=== PATIENT | female | born 1950 | race Caucasian/White ===

== ENCOUNTER → 2018-12-24 | Outpatient (CLI) | payer MEDICARE, OTHER ==
[2018-12-23 10:00] VITALS: BP 113/64
[~2018-12-24] MED LIST: ACETAMINOPHEN500 M5 PO; CALCIUM CITRATE1 TA1 PO; CIPRO 100MG TA100 MG; ECOTRIN325 M1 PO; FERROUS SULFAT325 M4 PO; FUROSEMIDE20 MG PO; GLIMEPIRIDE4 MG PO; JANUVIA 100MG100 MG PO; LEVEMIR FLEX100 U/ML SQ; METFORMIN HYD1000 MG PO; NAPROXEN500 MG PO; OLMESARTAN MEDO20 MG PO; OXYCODONE5 M1 PO; PRILOSEC 20MG20 MG PO; SIMVASTATIN40 M1 PO; TRAMADOL 50 MG TAB PO
[2018-12-24 10:14] LABS: ALBUMIN 3.1 g/dL (3.4-4.8); POTASSIUM 4.5 mmol/L (3.5-5.1)
[2018-12-24 10:15] LABS: CALCIUM 9.3 mg/dL (8.3-10.5)
[2018-12-24 10:17] LABS: TOTAL PROTEIN 7.4 g/dL (6.2-8.1)
[2018-12-24 10:18] LABS: TOTAL BILIRUBIN 0.2 mg/dL (0.2-1.2)
[2018-12-24 11:55] LABS: HEMATOCRIT 22.5 % (37.0-47.0); HEMOGLOBIN 6.5 g/dL (12.5-16.0); MEAN CELL VOLUME 79 fl (78-100); MEAN CORPUSCULAR HEMOGLOBIN 23 pg (27-31); RED BLOOD COUNT 2.84 M/mm3 (4.10-5.30); WHITE BLOOD COUNT 6.6 K/mm3 (4.8-10.8)
[2018-12-24 11:56] LABS: MEAN CORPUSCULAR HGB CONC 29 g/dL (33-37); MEAN PLATELET VOLUME 8.3 fl (7.4-10.4); PLATELET COUNT 649 K/mm3 (130-400); RED CELL DISTRIBUTION WIDTH 17.8 % (11.5-14.5)
[2018-12-24 11:58] LABS: ERYTHROCYTE SEDIMENTATION RATE > 135 mm/hr (0-30)
[2018-12-24 11:59] LABS: HYPOCHROMIA 1+; LYMPHOCYTE 24 % (20-51); MICROCYTOSIS 1+; MONOCYTE 7 % (3-10); NEUTROPHILS 69 % (42-75); POLYCHROMASIA 1+
[2018-12-24 12:00] LABS: OVALOCYTES 1+
== END ==
LOC: LAB 09:41
PROVIDERS: Nurse Practitioner Primary Care
DX: M00.9 Pyogenic arthritis, unspecified (principal); A49.01 Methicillin susceptible Staphylococcus aureus infection, unspecified site; A49.8 Other bacterial infections of unspecified site; E11.9 Type 2 diabetes mellitus without complications

== ENCOUNTER → 2018-12-31 | Outpatient (CLI) | payer MEDICARE, OTHER ==
[2018-12-30 17:23] VITALS: BP 120/63
[2018-12-31 17:52] LABS: EOS # 0.2 (0.04-0.40); EOS % 3.5 % (1.0-5.0); HEMATOCRIT 33.3 % (37.0-47.0); HEMOGLOBIN 10.1 g/dL (12.5-16.0); LYMPH# 1.6 (1.50-4.00); MEAN CELL VOLUME 80 fl (78-100); MEAN CORPUSCULAR HGB CONC 30 g/dL (33-37); MEAN PLATELET VOLUME 8.6 fl (7.4-10.4); MONO # 0.5 (0.20-0.80); NEU # 3.5 (1.40-6.50); PLATELET COUNT 399 K/mm3 (130-400); RED BLOOD COUNT 4.16 M/mm3 (4.10-5.30); WHITE BLOOD COUNT 5.9 K/mm3 (4.8-10.8)
[2018-12-31 17:54] LABS: MEAN CORPUSCULAR HEMOGLOBIN 24 pg (27-31); RED CELL DISTRIBUTION WIDTH 18.2 % (11.5-14.5)
[2018-12-31 18:02] LABS: ALBUMIN 3.5 g/dL (3.4-4.8); POTASSIUM 4.1 mmol/L (3.5-5.1)
[2018-12-31 18:03] LABS: CALCIUM 9.4 mg/dL (8.3-10.5)
[2018-12-31 18:04] LABS: TOTAL PROTEIN 7.9 g/dL (6.2-8.1)
[2018-12-31 18:06] LABS: TOTAL BILIRUBIN 0.2 mg/dL (0.2-1.2)
[2018-12-31 18:45] LABS: ERYTHROCYTE SEDIMENTATION RATE 79 mm/hr (0-30)
== END ==
LOC: LAB 17:39
PROVIDERS: Orthopaedic Surgery
DX: T81.49XA Infection following a procedure, other surgical site, initial encounter (principal); B95.8 Unspecified staphylococcus as the cause of diseases classified elsewhere

== ENCOUNTER → 2019-01-07 | Outpatient (CLI) | payer MEDICARE, OTHER ==
[2019-01-06 17:04] VITALS: BP 117/64
[2019-01-07 17:15] LABS: EOS # 0.2 (0.04-0.40); EOS % 2.4 % (1.0-5.0); HEMATOCRIT 33.5 % (37.0-47.0); HEMOGLOBIN 10.1 g/dL (12.5-16.0); LYMPH# 1.7 (1.50-4.00); MEAN CELL VOLUME 79 fl (78-100); MEAN CORPUSCULAR HGB CONC 30 g/dL (33-37); MEAN PLATELET VOLUME 8.9 fl (7.4-10.4); MONO # 0.5 (0.20-0.80); PLATELET COUNT 328 K/mm3 (130-400); RED BLOOD COUNT 4.24 M/mm3 (4.10-5.30); RED CELL DISTRIBUTION WIDTH 17.9 % (11.5-14.5); WHITE BLOOD COUNT 6.4 K/mm3 (4.8-10.8)
[2019-01-07 17:19] LABS: ALBUMIN 3.8 g/dL (3.4-4.8); POTASSIUM 4.4 mmol/L (3.5-5.1)
[2019-01-07 17:20] LABS: CALCIUM 9.8 mg/dL (8.3-10.5)
[2019-01-07 17:21] LABS: MEAN CORPUSCULAR HEMOGLOBIN 24 pg (27-31)
[2019-01-07 17:22] LABS: TOTAL PROTEIN 8.2 g/dL (6.2-8.1)
[2019-01-07 17:23] LABS: TOTAL BILIRUBIN 0.2 mg/dL (0.2-1.2)
[2019-01-07 18:26] LABS: ERYTHROCYTE SEDIMENTATION RATE 72 mm/hr (0-30)
== END ==
LOC: LAB 16:24
PROVIDERS: Internal Medicine Infectious Disease
DX: T81.49XA Infection following a procedure, other surgical site, initial encounter (principal); B95.8 Unspecified staphylococcus as the cause of diseases classified elsewhere

== ENCOUNTER → 2019-01-10 | Outpatient (CLI) | payer MEDICARE, OTHER ==
[2019-01-07 16:33] VITALS: BP 123/72
== END ==
LOC: LAB 15:33
DX: M79.10 Myalgia, unspecified site (principal)

== ENCOUNTER → 2019-01-14 | Outpatient (CLI) | payer MEDICARE, OTHER ==
[2019-01-13 15:43] VITALS: BP 131/71
[2019-01-14 16:33] LABS: EOS # 0.2 (0.04-0.40); EOS % 3.3 % (1.0-5.0); HEMATOCRIT 34.4 % (37.0-47.0); HEMOGLOBIN 10.5 g/dL (12.5-16.0); LYMPH# 1.7 (1.50-4.00); MEAN CELL VOLUME 78 fl (78-100); MEAN CORPUSCULAR HGB CONC 31 g/dL (33-37); MEAN PLATELET VOLUME 9.7 fl (7.4-10.4); MONO # 0.5 (0.20-0.80); NEU # 3.9 (1.40-6.50); PLATELET COUNT 299 K/mm3 (130-400); RED BLOOD COUNT 4.41 M/mm3 (4.10-5.30); RED CELL DISTRIBUTION WIDTH 17.7 % (11.5-14.5); WHITE BLOOD COUNT 6.5 K/mm3 (4.8-10.8)
[2019-01-14 16:36] LABS: ALBUMIN 3.8 g/dL (3.4-4.8); POTASSIUM 4.4 mmol/L (3.5-5.1)
[2019-01-14 16:39] LABS: TOTAL PROTEIN 7.7 g/dL (6.2-8.1)
[2019-01-14 16:41] LABS: TOTAL BILIRUBIN 0.2 mg/dL (0.2-1.2)
[2019-01-14 16:57] LABS: MEAN CORPUSCULAR HEMOGLOBIN 24 pg (27-31)
[2019-01-14 17:36] LABS: ERYTHROCYTE SEDIMENTATION RATE 48 mm/hr (0-30)
== END ==
LOC: LAB 15:22
PROVIDERS: Nurse Practitioner Primary Care
DX: T81.49XA Infection following a procedure, other surgical site, initial encounter (principal); B95.8 Unspecified staphylococcus as the cause of diseases classified elsewhere

== ENCOUNTER → 2019-01-21 | Outpatient (CLI) | payer MEDICARE, OTHER ==
[2019-01-20 15:59] VITALS: BP 112/64
[2019-01-21 15:58] LABS: EOS # 0.2 (0.04-0.40); EOS % 2.9 % (1.0-5.0); HEMATOCRIT 32.8 % (37.0-47.0); HEMOGLOBIN 9.9 g/dL (12.5-16.0); LYMPH# 1.6 (1.50-4.00); MEAN CELL VOLUME 78 fl (78-100); MEAN CORPUSCULAR HGB CONC 30 g/dL (33-37); MEAN PLATELET VOLUME 9.6 fl (7.4-10.4); MONO # 0.4 (0.20-0.80); NEU # 4.7 (1.40-6.50); PLATELET COUNT 285 K/mm3 (130-400); RED CELL DISTRIBUTION WIDTH 17.6 % (11.5-14.5); WHITE BLOOD COUNT 6.9 K/mm3 (4.8-10.8)
[2019-01-21 16:01] LABS: MEAN CORPUSCULAR HEMOGLOBIN 24 pg (27-31)
[2019-01-21 16:03] LABS: ALBUMIN 3.7 g/dL (3.4-4.8); POTASSIUM 4.4 mmol/L (3.5-5.1)
[2019-01-21 16:04] LABS: CALCIUM 9.5 mg/dL (8.3-10.5)
[2019-01-21 16:05] LABS: TOTAL PROTEIN 7.3 g/dL (6.2-8.1)
[2019-01-21 16:07] LABS: TOTAL BILIRUBIN 0.2 mg/dL (0.2-1.2)
[2019-01-21 17:14] LABS: ERYTHROCYTE SEDIMENTATION RATE 52 mm/hr (0-30)
== END ==
LOC: LAB 15:17
PROVIDERS: Nurse Practitioner Primary Care
DX: T81.49XA Infection following a procedure, other surgical site, initial encounter (principal); B95.8 Unspecified staphylococcus as the cause of diseases classified elsewhere

== ENCOUNTER → 2019-01-28 | Outpatient (CLI) | payer MEDICARE, OTHER ==
[2019-01-27 15:44] VITALS: BP 101/68
[2019-01-28 16:20] LABS: EOS # 0.4 (0.04-0.40); EOS % 6.7 % (1.0-5.0); HEMATOCRIT 32.4 % (37.0-47.0); HEMOGLOBIN 9.8 g/dL (12.5-16.0); LYMPH# 1.5 (1.50-4.00); MEAN CELL VOLUME 78 fl (78-100); MEAN CORPUSCULAR HGB CONC 30 g/dL (33-37); MEAN PLATELET VOLUME 9.3 fl (7.4-10.4); MONO # 0.4 (0.20-0.80); NEU # 3.4 (1.40-6.50); PLATELET COUNT 272 K/mm3 (130-400); RED BLOOD COUNT 4.18 M/mm3 (4.10-5.30); RED CELL DISTRIBUTION WIDTH 17.6 % (11.5-14.5); WHITE BLOOD COUNT 5.8 K/mm3 (4.8-10.8)
[2019-01-28 16:23] LABS: MEAN CORPUSCULAR HEMOGLOBIN 23 pg (27-31)
[2019-01-28 16:26] LABS: ALBUMIN 3.8 g/dL (3.4-4.8)
[2019-01-28 16:27] LABS: POTASSIUM 4.1 mmol/L (3.5-5.1)
[2019-01-28 16:28] LABS: CALCIUM 9.6 mg/dL (8.3-10.5)
[2019-01-28 16:29] LABS: TOTAL PROTEIN 7.2 g/dL (6.2-8.1)
[2019-01-28 16:31] LABS: TOTAL BILIRUBIN 0.2 mg/dL (0.2-1.2)
[2019-01-28 17:18] LABS: ERYTHROCYTE SEDIMENTATION RATE 55 mm/hr (0-30)
== END ==
LOC: LAB 15:43
PROVIDERS: Nurse Practitioner Primary Care
DX: T81.49XA Infection following a procedure, other surgical site, initial encounter (principal); B95.8 Unspecified staphylococcus as the cause of diseases classified elsewhere

== ENCOUNTER → 2019-02-04 | Outpatient (CLI) | payer MEDICARE, OTHER ==
[2019-02-03 15:42] VITALS: BP 114/70
[2019-02-04 16:17] LABS: ALBUMIN 3.8 g/dL (3.4-4.8); EOS # 0.2 (0.04-0.40); EOS % 3.6 % (1.0-5.0); HEMATOCRIT 33.4 % (37.0-47.0); HEMOGLOBIN 10.1 g/dL (12.5-16.0); LYMPH# 1.6 (1.50-4.00); MEAN CELL VOLUME 78 fl (78-100); MEAN CORPUSCULAR HGB CONC 30 g/dL (33-37); MONO # 0.4 (0.20-0.80); NEU # 3.9 (1.40-6.50); PLATELET COUNT 274 K/mm3 (130-400); POTASSIUM 4.2 mmol/L (3.5-5.1); RED BLOOD COUNT 4.31 M/mm3 (4.10-5.30); RED CELL DISTRIBUTION WIDTH 17.8 % (11.5-14.5); WHITE BLOOD COUNT 6.2 K/mm3 (4.8-10.8)
[2019-02-04 16:18] LABS: CALCIUM 9.7 mg/dL (8.3-10.5)
[2019-02-04 16:19] LABS: TOTAL PROTEIN 7.5 g/dL (6.2-8.1)
[2019-02-04 16:21] LABS: TOTAL BILIRUBIN 0.2 mg/dL (0.2-1.2)
[2019-02-04 17:19] LABS: MEAN CORPUSCULAR HEMOGLOBIN 23 pg (27-31)
[2019-02-04 17:20] LABS: ERYTHROCYTE SEDIMENTATION RATE 51 mm/hr (0-30)
== END ==
LOC: LAB 15:36
PROVIDERS: Nurse Practitioner Primary Care
DX: T81.49XA Infection following a procedure, other surgical site, initial encounter (principal); B95.8 Unspecified staphylococcus as the cause of diseases classified elsewhere

== ENCOUNTER 2019-02-07 15:32 | Outpatient (RCR) | payer MEDICARE, OTHER ==
[2018-12-18 10:30] VITALS: BP 116/63
[2018-12-19 10:43] VITALS: BP 114/60
[2018-12-20 11:10] VITALS: BP 120/64
[2018-12-21 10:38] VITALS: BP 112/57
[2018-12-22 10:00] VITALS: BP 130/68
[2018-12-23 10:00] VITALS: BP 113/64
[2018-12-24 09:54] VITALS: BP 113/64
[2018-12-25 09:35] VITALS: BP 110/79
[2018-12-26 10:44] VITALS: BP 137/75
[2018-12-27 17:00] VITALS: BP 135/62
[2018-12-28 17:29] VITALS: BP 136/78
[2018-12-29 17:15] VITALS: BP 141/71
[2018-12-30 17:23] VITALS: BP 120/63
[2018-12-31 17:28] VITALS: BP 137/70
[2019-01-01 17:27] VITALS: BP 123/72
[2019-01-02 17:55] VITALS: BP 167/78
[2019-01-03 17:13] VITALS: BP 139/73
[2019-01-04 16:49] VITALS: BP 137/72
[2019-01-05 16:55] VITALS: BP 125/73
[2019-01-06 17:04] VITALS: BP 117/64
[2019-01-07 16:33] VITALS: BP 123/72
[2019-01-10 15:54] VITALS: BP 125/71
[2019-01-11 15:55] VITALS: BP 109/73
[2019-01-12 15:51] VITALS: BP 116/93
[2019-01-13 15:43] VITALS: BP 131/71
[2019-01-14 16:03] VITALS: BP 121/72
[2019-01-15 15:50] VITALS: BP 116/64
[2019-01-16 15:45] VITALS: BP 110/62
[2019-01-17 15:26] VITALS: BP 119/60
[2019-01-18 15:21] VITALS: BP 130/73
[2019-01-19 15:00] VITALS: BP 111/60
[2019-01-20 15:59] VITALS: BP 112/64
[2019-01-21 15:48] VITALS: BP 123/64
[2019-01-22 16:04] VITALS: BP 114/64
[2019-01-23 15:35] VITALS: BP 116/84
[2019-01-24 15:30] VITALS: BP 130/68
[2019-01-25 15:15] VITALS: BP 129/70
[2019-01-26 15:39] VITALS: BP 123/68
[2019-01-27 15:44] VITALS: BP 101/68
[2019-01-28 16:27] VITALS: BP 118/68
[2019-01-29 15:52] VITALS: BP 113/62
[2019-01-30 15:29] VITALS: BP 124/66
[2019-01-31 16:14] VITALS: BP 109/71
[2019-02-01 16:30] VITALS: BP 126/71
[2019-02-02 15:47] VITALS: BP 106/68
[2019-02-03 15:42] VITALS: BP 114/70
[2019-02-04 16:09] VITALS: BP 114/69
[2019-02-05 15:43] VITALS: BP 128/69
[2019-02-06 16:02] VITALS: BP 112/73
[~2019-02-07] VITALS: Ht 160 cm; Wt 94.5 kg
[2019-02-07 15:38] VITALS: BP 128/74
== END 2019-02-07 16:00 | disposition home or self-care (01) ==
LOC: AMSURD 15:32
DX: T84.52XA Infection and inflammatory reaction due to internal left hip prosthesis, initial encounter (principal); B95.8 Unspecified staphylococcus as the cause of diseases classified elsewhere; Z79.899 Other long term (current) drug therapy
CPT/HCPCS: J0696; J0878

== ENCOUNTER → 2019-04-01 | Outpatient (CLI) | payer MEDICARE, OTHER ==
[2019-04-01 12:00] LABS: EOS # 0.1 (0.04-0.40); EOS % 2.2 % (1.0-5.0); HEMATOCRIT 37.9 % (37.0-47.0); HEMOGLOBIN 11.4 g/dL (12.5-16.0); MEAN CELL VOLUME 78 fl (78-100); MEAN CORPUSCULAR HGB CONC 30 g/dL (33-37); MEAN PLATELET VOLUME 9.1 fl (7.4-10.4); MONO # 0.4 (0.20-0.80); NEU # 3.3 (1.40-6.50); PLATELET COUNT 261 K/mm3 (130-400); RED BLOOD COUNT 4.89 M/mm3 (4.10-5.30); RED CELL DISTRIBUTION WIDTH 17.8 % (11.5-14.5); WHITE BLOOD COUNT 5.9 K/mm3 (4.8-10.8)
[2019-04-01 12:06] LABS: MEAN CORPUSCULAR HEMOGLOBIN 23 pg (27-31); POTASSIUM 4.1 mmol/L (3.5-5.1)
[2019-04-01 12:07] LABS: CALCIUM 8.8 mg/dL (8.3-10.5)
[2019-04-01 12:08] LABS: TOTAL PROTEIN 7.5 g/dL (6.2-8.1)
[2019-04-01 12:10] LABS: TOTAL BILIRUBIN 0.3 mg/dL (0.2-1.2)
[2019-04-01 13:24] LABS: ERYTHROCYTE SEDIMENTATION RATE 31 mm/hr (0-30)
== END ==
LOC: LAB 11:36
PROVIDERS: Internal Medicine Infectious Disease
DX: T81.49XA Infection following a procedure, other surgical site, initial encounter (principal)

== ENCOUNTER → 2020-06-30 | Outpatient (CLI) | payer MEDICARE, OTHER ==
[2020-06-30 16:47] LABS: ALBUMIN 4.1 g/dL (3.4-4.8); POTASSIUM 3.9 mmol/L (3.5-5.1)
[2020-06-30 16:48] LABS: CALCIUM 9.8 mg/dL (8.3-10.5)
[2020-06-30 16:50] LABS: TOTAL PROTEIN 7.4 g/dL (6.2-8.1)
[2020-06-30 16:52] LABS: TOTAL BILIRUBIN 0.3 mg/dL (0.2-1.2)
== END ==
LOC: LAB 16:23
PROVIDERS: Internal Medicine Infectious Disease
DX: B99.9 Unspecified infectious disease (principal)

== ENCOUNTER → 2024-03-07 | Outpatient (CLI) | payer MEDICARE ==
[~2024-03-07] MED LIST changes: +Gadoterate 20 ML VIAL IV ONE
== END ==
LOC: RAD 13:45
DX: M47.816 Spondylosis without myelopathy or radiculopathy, lumbar region (principal); M51.360 Other intervertebral disc degeneration, lumbar region with discogenic back pain only; M48.061 Spinal stenosis, lumbar region without neurogenic claudication; M43.16 Spondylolisthesis, lumbar region
CPT/HCPCS: A9575